=== PATIENT | male | born 1980 | race Caucasian/White ===

== ENCOUNTER → 2021-01-09 10:46 | Outpatient (CLI) | payer OTHER, MEDICAID, SELFPAY ==
[2021-01-09 20:45] LABS: COVID19 - ORCAS (NP or Nasal) POSITIVE (Negative)
== END ==
PROVIDERS: Family Provider Family Medicine; PCP Family Medicine; Visit Provider Physician Assistant Medical
DX: U07.1 COVID-19 (principal)
CPT/HCPCS: U0003

== ENCOUNTER → 2023-09-09 09:20 | Outpatient (CLI) | payer OTHER, MEDICAID, SELFPAY ==
[2023-09-12 21:55] LABS: Fecal Immunochemical Test Negative (Negative)
== END ==
PROVIDERS: Family Provider Family Medicine; PCP Family Medicine; Visit Provider Family Medicine
DX: Z12.11 Encounter for screening for malignant neoplasm of colon (principal)
CPT/HCPCS: 82274